=== PATIENT | male | born 1955 | race Caucasian/White ===

== ENCOUNTER 2018-09-12 19:09 | Emergency (ER) | payer OTHER ==
[2018-09-12] MEDS: Albuterol/Ipratropium 3.0-0.5 MG/3 ML Neb Soln NEB ONE (19:35)
--- NOTE | 2018-09-12 20:01 | EDM.PDOC ---
ED HPI GENERAL MEDICAL PROBLEM - General Chief Complaint: Respiratory Problem Stated Complaint: SOB, Wheezing Time Seen by Provider: 09/12/18 19:20 Source of Information: Reports: Patient History Limitations: Reports: No Limitations - History of Present Illness INITIAL COMMENTS - FREE TEXT/NARRATIVE: Patient is a 63-year-old who was seen by cardiology and underwent angiogram, angiogram revealed no blockage and patient was sent home for the last 2 weeks he has not been feeling well approximately one week ago he started feeling short of breath wheezing and bloated difficulty breathing was diagnosed with pneumonia and treated Onset: Gradual Duration: Week(s):, Getting Worse Location: Reports: Chest Quality: Reports: Sharp (On the left side around T9 area) Severity: Moderate Improves with: Reports: Heat Therapy Worsens with: Reports: None Context: Reports: Other (Illness) - Related Data Allergies Allergy/AdvReac Type Severity Reaction Status Date / Time cephalexin [From Keflex] Allergy Diarrhea, Verified 09/12/18 19:09 upset stomach Home Meds: Home Meds Aspirin [Clifford Chewable Aspirin] 81 mg PO DAILY 12/19/13 [History] Multivitamin [Daily Multiple Vitamin] 1 tab PO DAILY 08/29/16 [History] Omeprazole 20 mg PO DAILY 08/29/16 [History] Cyanocobalamin (Vitamin B12) [Vitamin B12] 1,000 mcg PO DAILY 09/12/18 [History] Cyclobenzaprine [Flexeril] 10 mg PO TID 09/12/18 [History] Fenofibrate Nanocrystallized [Fenofibrate] 145 mg PO DAILY 09/12/18 [History] Metoprolol Succinate 50 mg PO BID 09/12/18 [History] Ubidecarenone [Co Q-10] 10 mg PO DAILY 09/12/18 [History] levoFLOXacin [Levaquin] 500 mg PO DAILY 09/12/18 [History] Past Medical History HEENT History: Reports: Impaired Vision, Other (See Below) Other HEENT History: wears glasses Cardiovascular History: Reports: High Cholesterol, Hypertension Respiratory History: Reports: Bronchitis, Recurrent, COPD Gastrointestinal History: Reports: Diverticulosis, GERD Hematologic History: Reports: B12 Deficiency - Past Surgical History HEENT Surgical History: Reports: LASIK, Other (See Below) Other GI Surgeries/Procedures: rectourethral fistula 08/01/11 Musculoskeletal Surgical History: Reports: Carpal Tunnel Social & Family History - Tobacco Use Smoking Status *Q: Former Smoker Used Tobacco, but Quit: Yes Month/Year Tobacco Last Used: 2015 - Caffeine Use Caffeine Use: Reports: None ED ROS GENERAL - Review of Systems Review Of Systems: See Below Constitutional: Reports: Fatigue HEENT: Reports: No Symptoms Respiratory: Reports: Shortness of Breath, Wheezing Cardiovascular: Reports: No Symptoms Endocrine: Reports: No Symptoms GI/Abdominal: Reports: No Symptoms : Reports: No Symptoms Musculoskeletal: Reports: Muscle Stiffness Skin: Reports: No Symptoms Neurological: Reports: No Symptoms Psychiatric: Reports: No Symptoms Hematologic/Lymphatic: Reports: No Symptoms Immunologic: Reports: No Symptoms ED EXAM, GENERAL - Physical Exam Exam: See Below Exam Limited By: No Limitations General Appearance: Alert, WD/WN, No Apparent Distress Ears: Normal External Exam, Normal Canal, Hearing Grossly Normal, Normal TMs Nose: Normal Inspection, Normal Mucosa, No Blood Throat/Mouth: Normal Inspection, Normal Lips, Normal Teeth, Normal Gums, Normal Oropharynx, Normal Voice, No Airway Compromise Head: Atraumatic, Normocephalic Neck: Normal Inspection, Supple, Non-Tender, Full Range of Motion Respiratory/Chest: Decreased Breath Sounds, Wheezing Cardiovascular: Normal Peripheral Pulses, Regular Rate, Rhythm, No Edema, No Gallop, No JVD, No Murmur, No Rub GI/Abdominal: Normal Bowel Sounds, Distended (Male) Exam: No Hernia, Normal Inspection, Normal Prostate, Circumcised Rectal (Males) Exam: Deferred Back Exam: Normal Inspection, Full Range of Motion, NT Extremities: Normal Inspection, Normal Range of Motion, Non-Tender, Normal Capillary Refill, No Pedal Edema Neurological: Alert, Oriented, CN II-XII Intact, Normal Cognition, Normal Gait, Normal Reflexes, No Motor/Sensory Deficits Psychiatric: Normal Affect, Normal Mood Skin Exam: Warm, Dry, Intact, Normal Color, No Rash Lymphatic: No Adenopathy Course - Vital Signs Last Recorded V/S: Last Vital Signs Temp 97.7 F 09/12/18 19:10 Pulse 128 H 09/12/18 19:10 Resp 20 09/12/18 19:10 BP 119/74 09/12/18 19:10 Pulse Ox 97 09/12/18 19:10 - Orders/Labs/Meds Orders: Active Orders 24 hr Category Date Time Status EKG Documentation Completion [RC] ASDIRECTED Care 09/12/18 20:45 Active RT Aerosol Therapy [RC] ASDIRECTED Care 09/12/18 19:28 Active Chest 2V [CR] Stat Exams 09/12/18 19:14 Taken Chest w Cont [CT] Stat Exams 09/12/18 20:17 Ordered Furosemide [Lasix] Med 09/13/18 08:00 Ordered 40 mg IVPUSH DAILY Levofloxacin/Dextrose 5%-Water [Levaquin in D5W 500 MG/ Med 09/12/18 21:15 Ordered 100 ML] 500 mg Premix Bag 1 bag IV Q24H Sodium Chloride 0.9% [Saline Flush] Med 09/12/18 20:47 Ordered 10 ml FLUSH ASDIRECTED PRN Saline Lock Insert [OM.PC] Stat Oth 09/12/18 20:47 Ordered EKG 12 Lead [EK] Stat Ther 09/12/18 20:44 Ordered Medication Orders Furosemide (Lasix) 40 mg IVPUSH DAILY GILLIAN Levofloxacin/Dextrose 500 mg/ (Premix) 100 mls @ 100 mls/hr IV Q24H GILLIAN Sodium Chloride (Saline Flush) 10 ml FLUSH ASDIRECTED PRN PRN Reason: Keep Vein Open Labs: Laboratory Tests 09/12/18 09/12/18 09/12/18 Range/Units 19:30 19:35 19:35 WBC 9.7 (4.0-10.2) K/uL RBC 5.09 (4.33-5.41) M/uL Hgb 15.0 (13.1-16.8) g/dL Hct 43.4 (39.0-49.0) % MCV 85.3 (84.0-98.0) fL MCH 29.5 (28.2-33.3) pg MCHC 34.6 (31.7-36.0) g/dL RDW 13.5 (11.2-14.1) % Plt Count 302 (150-350) K/uL Neut % (Auto) 70.0 (45.0-80.0) % Lymph % (Auto) 18.5 (10.0-50.0) % Boyle % (Auto) 9.7 (2.0-14.0) % Eos % (Auto) 1.1 (0.0-5.0) % Baso % (Auto) 0.7 (0.0-2.0) % Neut # (Auto) 6.76 (1.40-7.00) K/uL Lymph # (Auto) 1.79 (0.50-3.50) K/uL Boyle # (Auto) 0.94 (0.00-1.00) K/uL Eos # (Auto) 0.11 (0.00-0.50) K/uL Baso # (Auto) 0.07 (0.00-0.20) K/uL D-Dimer, Quantitative 223 (0-400) ng/mL Sodium 140 (136-145) mmol/L Potassium 3.7 (3.5-5.1) mmol/L Chloride 101 (98-107) mmol/L Carbon Dioxide 25.1 (21.0-32.0) mmol/L BUN 17 (7-18) mg/dL Creatinine 1.21 H (0.51-1.17) mg/dL Est Cr Clr Drug Dosing 74.54 mL/min Estimated GFR (MDRD) > 60 mL/min Glucose 106 (74-106) mg/dL Calcium 8.6 (8.5-10.1) mg/dL Total Bilirubin 0.4 (0.2-1.0) mg/dL AST 27 (15-37) U/L ALT 34 (12-78) U/L Alkaline Phosphatase 64 (46-116) IU/L Total Protein 7.7 (6.4-8.2) g/dL Albumin 3.4 (3.4-5.0) g/dL Meds: Medications Generic Name Dose Route Start Last Admin Trade Name Freq PRN Reason Stop Dose Admin Furosemide 40 mg 09/13/18 08:00 Lasix IVPUSH DAILY GILLIAN Levofloxacin/Dextrose 500 mg/ 100 mls @ 100 mls/hr 09/12/18 21:15 Premix IV Q24H GILLIAN Sodium Chloride 10 ml 09/12/18 20:47 Saline Flush FLUSH ASDIRECTED PRN Keep Vein Open Discontinued Medications Generic Name Dose Route Start Last Admin Trade Name Freq PRN Reason Stop Dose Admin Albuterol/Ipratropium 3 ml 09/12/18 19:28 09/12/18 19:35 Duoneb 3.0-0.5 Mg/3 Ml NEB 09/12/18 19:29 3 ml ONETIME ONE Administration Iopamidol 100 ml 09/12/18 20:36 Isovue-300 (61%) IVPUSH 09/12/18 20:37 ONETIME ONE Departure - Departure Time of Disposition: 20:13 Disposition: Admitted As Inpatient 68 Condition: Fair Clinical Impression: Pleural effusion associated with pulmonary infection, Pleural effusion, SVT ( supraventricular tachycardia) - Discharge Information *PRESCRIPTION DRUG MONITORING PROGRAM REVIEWED*: No *COPY OF PRESCRIPTION DRUG MONITORING REPORT IN PATIENT CORTNEY: No Instructions: Thoracentesis, Shortness of Breath, Adult, [id number], Pleural Effusion Referrals: Olivier Elder, PA [Primary Care Provider] - Forms: ED Department Discharge Care Plan Goals: At this time patient is given a BD Seng and cardiac monitored secondary to SVT I discussed with patient possible transfer tonight spoke with Dr. Mathew who agreed to take him. - My Orders Last 24 Hours: My Active Orders 09/12/18 19:14 Chest 2V [CR] Stat 09/12/18 19:28 RT Aerosol Therapy [RC] ASDIRECTED 09/12/18 20:17 Chest w Cont [CT] Stat 09/12/18 20:44 EKG 12 Lead [EK] Stat 09/12/18 20:45 EKG Documentation Completion [RC] ASDIRECTED 09/12/18 20:47 Sodium Chloride 0.9% [Saline Flush] 10 ml FLUSH ASDIRECTED PRN Saline Lock Insert [OM.PC] Stat 09/12/18 21:15 Levofloxacin/Dextrose 5%-Water [Levaquin in D5W 500 MG/100 ML] 500 mg Premix Bag 1 bag IV Q24H 09/13/18 08:00 Furosemide [Lasix] 40 mg IVPUSH DAILY - Assessment/Plan Last 24 Hours: My Active Orders 09/12/18 19:14 Chest 2V [CR] Stat 09/12/18 19:28 RT Aerosol Therapy [RC] ASDIRECTED 09/12/18 20:17 Chest w Cont [CT] Stat 09/12/18 20:44 EKG 12 Lead [EK] Stat 09/12/18 20:45 EKG Documentation Completion [RC] ASDIRECTED 09/12/18 20:47 Sodium Chloride 0.9% [Saline Flush] 10 ml FLUSH ASDIRECTED PRN Saline Lock Insert [OM.PC] Stat 09/12/18 21:15 Levofloxacin/Dextrose 5%-Water [Levaquin in D5W 500 MG/100 ML] 500 mg Premix Bag 1 bag IV Q24H 09/13/18 08:00 Furosemide [Lasix] 40 mg IVPUSH DAILY
[2018-09-12] MEDS ORDERED: Iopamidol 612 MG/ML 100 ML Bottle IVPUSH ONE (20:36)
[2018-09-12] MEDS ORDERED: Sodium Chloride 0.9% 10 ML Syringe FLUSH PRN (20:47)
[2018-09-12 20:49] LABS: CHLORIDE,CL 101 mmol/L (98-107); SODIUM,NA 140 mmol/L (136-145)
[2018-09-12] MEDS: Levofloxacin/Dextrose 5%-Water 500 MG in Premix Bag 1 BAG IV SCH (21:21)
[2018-09-12 21:41] VITALS: BP 117/72
[2018-09-13] MEDS ORDERED: Furosemide 40 MG/4 ML VIAL IVPUSH SCH (08:00)
== END 2018-09-12 21:55 ==
LOC: LL.ED 19:09
DX: J18.9 Pneumonia, unspecified organism (principal); I47.1 Supraventricular tachycardia
CPT/HCPCS: 36415; 71046; 71260; 80053; 85025; 85379; 87804; 93005; 94640; 96365; 99285; J1956; J7620-GY; Q9967